=== PATIENT | female | born 1995 | race Caucasian/White ===

== ENCOUNTER 2017-11-09 10:06 | Inpatient (IN) | payer OTHER, BC ==
--- NOTE | 2017-11-08 19:56 | PDOC.LDHP ---
Labor and Delivery H&P Chief complaint: scheduled section HPI: 22 yo @ 39w0d by 10 week CRL who presents for scheduled PLTCS due to h/o shoulder dystocia with infant clavicle fracture. Antepartum course otherwise benign. Current gestational age (weeks): 39 Due date: 11/16/17 Dating criteria: first trimester ultrasound Grav: 2 Para: 1 OB History Details: complicated by shoulder dystocia, 8 lb 14 oz Current complications: none Abnormal US findings: No Past Medical History: Denies Current medications: pre-annamarie vitamins Previous surgical history: other (Tonsillectomy) Allergies/Adverse Reactions: Allergies Allergy/AdvReac Type Severity Reaction Status Date / Time No Known Allergies Allergy Verified 02/26/13 09:11 Social history: none - Physical Exam Vital signs reviewed and normal: yes General: resting Heart: RRR Lungs: nonlabored breathing Abdomen: gravid Extremeties: no edema FHT: category 2 (140s, mod laury, +accels, small variable decels) [place] contractions every: q4-5 min, pt does not feel ctx. - OB Labs Blood type: A RH: positive Antibody Screen: negative HIV: negative RPR: negative HEPSAg: negative 1 hour GCT: negative GBS: positive Urine drug screen: not done Rubella: immune - Assessment 39w0d IUP H/O shoulder dystocia with clavicle fracture - Plan Plan: admit to L&D, to OR for section, informed consent obtained, anesthesia consult for pain management -: Patient has been counseled on options for delivery including serial growth sonograms vs PLTCS due to h/o shoulder dystocia and due to 15% risk of recurrence she desires PLTCS, scheduled today.
[2017-11-09] MEDS ORDERED: Promethazine HCl 25 MG/ML VIAL IM PRN ×2 (11:09→17:31)
[2017-11-09] MEDS ORDERED: Bicitra 30 ML UDCUP PO SCH (11:09)
[2017-11-09] MEDS ORDERED: Ondansetron HCl/PF 4 MG/2 ML Vial IVP PRN ×3 (11:09→17:31)
[2017-11-09] MEDS ORDERED: CEFAZOLIN/Water 2 GM/20 ML SYRINGE SLOW IVP SCH (11:09)
[2017-11-09 11:17] LABS: Hemoglobin 12.6 g/dL (12.0-16.0); Mean Corpuscular HGB CONC 34.7 g/dL (32.0-36.0); Mean Corpuscular Hemoglobin 27.4 pg (27.0-31.0); Mean Corpuscular Volume 79.1 fl (81.0-99.0); Mean Platelet Volume 7.9 fL (7.4-10.4); Platelet Count 179 thou/uL (130-400); Red Blood Cell (RBC) Count 4.58 mill/uL (4.20-5.40); White Blood Cell (WBC) Count 11.3 thou/uL (4.8-10.8)
[2017-11-09 11:25] VITALS: BMI 35.0
[2017-11-09 12:03] LABS: HIV (1/2) Antibody/Antigen Non-Reactive (NonReactive); Hep B Surf Ag Non-Reactive S/CO (NonReactive)
[2017-11-09 12:05] LABS: Syphilis Antibody Nonreactive (Nonreactive); Syphilis Antibody Index 0.07 S/CO (<1.00 Non-Reactive)
[2017-11-09] MEDS ORDERED: PHENYLEPHRINE-NS 100 MCG/ML 10 ML SYRINGE ONE ×2 (13:26→17:02)
[2017-11-09] MEDS ORDERED: Bupivacaine 0.75% W/DEXTROSE 8.25% 2 ML AMP ONE (16:51)
[2017-11-09] MEDS ORDERED: Morphine PF 1 MG/ML SYR ONE (16:59)
[2017-11-09] MEDS ORDERED: Oxytocin 10 UNITS/ML VIAL ONE ×2 (17:02→17:26)
[2017-11-09] MEDS ORDERED: Lidocaine 1% PF 5 ML VIAL ONE (17:04)
[2017-11-09] MEDS ORDERED: Promethazine HCl 25 MG SUPP PR PRN (17:31)
[2017-11-09] MEDS ORDERED: diphenhydrAMINE 50 MG/ML VIAL IVP PRN (17:31)
[2017-11-09] MEDS ORDERED: Eucerin (Mineral Oil/Petrolatum,White) 30 gm Jar TOP PRN (17:31)
[2017-11-09] MEDS ORDERED: HYDROmorphone 2 MG/ML VIAL SLOW IVP PRN (17:31)
[2017-11-09] MEDS ORDERED: Naloxone HCl 0.4 mg/ml Vial IV PRN (17:31)
[2017-11-09] MEDS ORDERED: Naloxone HCl 0.4 mg/ml Vial IVP PRN ×2 (17:31)
[2017-11-09] MEDS ORDERED: Meperidine HCl/PF 25 MG/ML VIAL SLOW IVP PRN (17:31)
[2017-11-09] MEDS ORDERED: Communication Order-Pharmacy FS SCH (17:45)
[2017-11-09] MEDS ORDERED: Ketorolac Tromethamine 30 MG/ML VIAL IVP SCH (17:45)
--- NOTE | 2017-11-09 18:02 | PDOC.OPDEL ---
OB Operative/Delivery Note Delivery Dr/Surgeon: Emma Medina DO Assist: Paolo Hernandez MD Pre-Delivery Diagnosis: scheduled section (39 week IUP, h/o Shoulder dystocia) Procedure/Post Delivery Dx: primary low transverse CS Weeks gestation: 39 Anesthesia: spinal - Findings A Sex: male Weight: 8 lb 7 oz - 1 min: 8 - 5 min: 9 - Additional Findings/Plan Placenta delivered: spontaneous findings: low transverse hysterotomy without extension, normal uterus, normal tubes, normal ovaries Estimated blood loss: 800 cc Compilations/Other Findings: Infant in cephalic presentation Clear AF Normal placenta Post delivery plan: routine recovery
[2017-11-09] MEDS ORDERED: Promethazine HCl 25 MG/ML VIAL ONE (18:49)
[2017-11-09] MEDS ORDERED: Lanolin Ointment 7 GM TUBE TOP PRN (20:56)
[2017-11-09] MEDS ORDERED: Methylergonovine 0.2 MG/ML VIAL IM PRN (20:56)
[2017-11-09] MEDS ORDERED: LR w/ Pitocin 40 units/1000 ML BAG IV SCH (20:56)
[2017-11-09] MEDS ORDERED: Misoprostol 200 MCG TAB PR SCH (20:56)
[2017-11-09] MEDS ORDERED: Bisacodyl 10 MG SUPP PR PRN (20:56)
[2017-11-09] MEDS ORDERED: HYDROcodone/Acetaminophen 5/325 mg Tablet PO PRN (20:56)
[2017-11-09] MEDS ORDERED: Acetaminophen 325 MG TAB PO PRN (20:56)
[2017-11-09] MEDS ORDERED: LR / Pitocin 40 units/1000 ml 1,000 ML IV SCH (23:00)
[2017-11-09] MEDS: Lactated Ringer's 1,000 ML IV SCH (23:28)
[2017-11-10] MEDS: Lactated Ringer's 1,000 ML IV SCH ×3 (03:47→13:39)
[2017-11-10] MEDS: Simethicone Chewable 80 MG TAB PO PRN ×2 (04:08→17:40)
[2017-11-10] MEDS: Ketorolac Tromethamine 30 MG/ML VIAL IVP PRN ×3 (04:15→17:40)
[2017-11-10 05:20] LABS: #Lymphocytes 2.3 thou/uL (1.20-3.40); #Monocytes 0.7 thou/uL (0.11-0.59); #Neutrophils 8.1 thou/uL (1.40-6.50); %Basophils 0.3 % (0.0-1.0); %Eosinophils 0.4 % (0.0-10.0); %Lymphocytes 20.7 % (21.0-51.0); %Monocytes 5.9 % (0.0-10.0); %Neutrophils 72.8 % (42.0-75.0); Hemoglobin 9.7 g/dL (12.0-16.0); Mean Corpuscular HGB CONC 34.6 g/dL (32.0-36.0); Mean Corpuscular Hemoglobin 27.7 pg (27.0-31.0); Platelet Count 135 thou/uL (130-400); RBC Distribution Width 11.9 % (11.5-14.5); Red Blood Cell (RBC) Count 3.51 mill/uL (4.20-5.40); White Blood Cell (WBC) Count 11.1 thou/uL (4.8-10.8)
--- NOTE | 2017-11-10 08:00 | PRG ---
DATE OF SERVICE: 11/10/2017 PRIMARY OB: Dr. Emma Medina. SUBJECTIVE: The patient is a 22-year-old female postop day #1, status post a primary for h istory of shoulder dystocia and clavicle fracture on previous baby. The patient reports she is ruel ating p.o., has just had the Saravia catheter removed, she is having good pain control. PHYSICAL EXAMINATION: VITAL SIGNS: This morning, blood pressure is 110/66, temperature 98.6, pulse of 91, respiratory rate of 18, satting 98% on room air. GENERAL: She appears to be in no acute distress. She is alert and oriented, cooperative and pleasan t to interact with. HEENT: Head is normocephalic, atraumatic. ABDOMEN: Fundus is firm. Incision is clean, dry, and intact. EXTREMITIES: Nontender, nonedematous. LABORATORY STUDIES: Hemoglobin is 9.7 down from 12.6, hematocrit 28.1 down from 36.3, and platelets of 135,000. ASSESSMENT AND PLAN: The patient is a 22-year-old female postop day #1, status post a primary sectio n for history of shoulder dystocia. We will continue postoperative care. Anticipate discharge in 2- 3 days.
[2017-11-10] MEDS: Prenatal Vitamin 1 TAB PO SCH (09:09)
--- NOTE | 2017-11-10 09:47 | OP ---
PRIMARY OB: Dr. 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 Emma Medina on .
[2017-11-10] MEDS: HYDROcodone/Acetaminophen 5/325 mg Tablet PO PRN ×2 (16:19→21:18)
[2017-11-11] MEDS: Ibuprofen 800 MG TAB PO SCH ×3 (03:41→21:17)
[2017-11-11] MEDS: HYDROcodone/Acetaminophen 5/325 mg Tablet PO PRN ×3 (03:42→20:10)
[2017-11-11] MEDS: Lactated Ringer's 1,000 ML IV SCH ×4 (03:44→18:18)
--- NOTE | 2017-11-11 06:50 | PDOC.PP ---
Post Progress Note Post Day #: POD#2 Subjective: Resting comfortably. No complaints. PO intake tolerated: yes Flatus: yes Ambulation: yes Vital Signs (12 hours) Temp Pulse Resp 11/11/17 03:53 98.4 F 81 20 11/11/17 00:25 98.4 F 81 20 11/10/17 20:15 98.4 F 81 20 Weight Weight 89.811 kg - Physical Examination General: NAD Respiratory: non-labored breathing Abdominal: no distention Extremities: negative homans (B) Skin: CS incision dry & intact Psychiatric: normal affect Result Diagrams: 11/10/17 04:52 Additional Labs: Post Labs Blood Type A POSITIVE 11/09/17 10:40 Hep Bs Antigen Non-Reactive S/CO (NonReactive) 11/09/17 10:40 - Assessment/Plan Doing well. Advance diet. Ambulate hallway.
[2017-11-11] MEDS: Prenatal Vitamin 1 TAB PO SCH (09:32)
[2017-11-11] MEDS ORDERED: Docusate Calcium (SURFAK) 240 MG CAP PO PRN (22:19)
[2017-11-12] MEDS: Lactated Ringer's 1,000 ML IV SCH (00:26)
[2017-11-12] MEDS: Ibuprofen 800 MG TAB PO SCH (05:26)
--- NOTE | 2017-11-12 08:03 | DIS ---
DATE OF ADMISSION: 11/09/2017 DATE OF DISCHARGE: 11/12/2017 ADMITTING DIAGNOSES: 1. Intrauterine at 39 weeks. 2. History of previous shoulder dystocia with clavicle fracture. DISCHARGE DIAGNOSES: 1. Intrauterine at 39 weeks. 2. History of previous shoulder dystocia with clavicle fracture. PROCEDURE: Primary . CONSULTATIONS: None. HOSPITAL COURSE: The patient is a 22-year-old G2, P1 female who presented to Labor and Delivery for a scheduled primary due to history of shoulder dystocia with clavicle fracture in a previou s . For the complete details, please refer to the operative note. The was uncomp licated and the patient was once recovered, sent to for continued care. Her co urse has been uncomplicated. She is now postop day #3, she reports she is tolerating p.o., voiding o n her own, having decreased lochia and good pain control. PHYSICAL EXAMINATION: VITAL SIGNS: Today, blood pressure is 116/74, temperature 98.9, pulse of 92, respiratory rate of 20. GENERAL: She appears to be in no acute distress. She is alert and oriented, cooperative and pleasan t to interact with. HEENT: Head is normocephalic, atraumatic. ABDOMEN: Fundus is firm. Incision is clean, dry, and intact. EXTREMITIES: Nontender, nonedematous. LABORATORY DATA: Her post-delivery hemoglobin is 9.7, hematocrit 28.1, platelets of 135,000. DISPOSITION: The patient is being discharged to home. DISCHARGE INSTRUCTIONS: She has instructions to follow up with Dr. Medina for a 2 week incision che k. She also has instructions to seek medical attention sooner if she experiences fever, increasing p ain, bleeding, redness or drainage from the incision site. DISCHARGE MEDICATIONS: The patient is being discharged to home with [place] 5/325, #20 and ibuprofen 8 00 mg, #30 to be taken as needed p.r.n. for pain. The patient is being discharged to home.
[2017-11-12 10:38] VITALS: BP 110/71; TEMP 98.2
--- NOTE | 2017-11-12 22:23 | OP ---
DATE OF PROCEDURE: 11/09/2017 PREOPERATIVE DIAGNOSES: 1. This is a 39-week intrauterine . 2. History of shoulder dystocia with clavicular fracture of the infant. POSTOPERATIVE DIAGNOSES: 1. This is a 39-week intrauterine . 2. History of shoulder dystocia with clavicular fracture of the infant. PROCEDURE: Primary low transverse delivery via Pfannenstiel skin incision. SURGEON: Emma Medina D.O. ROAD DRIVER: Ian Hernandez M.D. COMPLICATIONS: None. ANESTHESIA: Spinal. ESTIMATED BLOOD LOSS: 800 mL. IV FLUIDS: 1400 mL. URINE OUTPUT: 100 mL. FINDINGS: Normal appearing uterus, fallopian tubes and ovaries bilaterally, normal appearing placent a, clear amniotic fluid, viable male infant in cephalic presentation with Apgars 8 and 9, weighing 8 pounds and 7 ounces. INDICATIONS FOR THE PROCEDURE: Ms. Maura Edgar is a 22-year-old G2, P1 at 39 weeks and 0 days who h as a history of previous shoulder dystocia resulting in a clavicular flexion of her first child who w eighed 8 pounds and 14 ounces. The patient was counseled on options of serial sonogram with a planne d vaginal delivery versus a primary delivery due to history of shoulder dystocia and she pre ferred to have a primary delivery. PROCEDURE IN DETAIL: The patient was brought to the operating room and spinal anesthesia was placed. She was placed in a supine position with a leftward tilt and Ancef was given prophylactically. She was prepped and draped in a sterile fashion and a Saravia catheter was placed. An official timeout wa s performed and the regional anesthesia was assessed and proven to be adequate. Pfannenstiel skin in cision was made using the scalpel and this was carried down to underlying fascia layer. The fascia w as incised in the midline using the scalpel and extended using Lord scissors. The superior aspect of the fascial incision was grasped using David clamps, tended upward and dissected free from the unde rlying rectus abdominis muscles. The same was done to the inferior aspect of fascial incision. Rect us abdominis muscles were bluntly. Peritoneum was entered in bluntly. Daniel O retractor was placed into the abdomen. A low transverse hysterotomy was made using the scalpel. The hysteroto my was elevated using Allis clamps and the hysterotomy was extended using sharp and blunt dissection. Amniotic membranes were ruptured and clear amniotic fluid. was delivered in cephalic presen tation. 's cord was clamped and cut. Infant was handed to the awaiting Neonatology team. Cor d sample and cord blood were obtained. The placenta was delivered spontaneously intact. The uterus was cleared of all clot and debris. Hysterotomy was closed in a running locking fashion using #1 PDS . There was an area along the middle aspect of the hysterotomy that required an additional figure-of -eight stitch for hemostasis. The pelvis was then irrigated and cleared of all clot and debris. The ovaries and fallopian tubes were evaluated and normal in appearance. The Daniel O retractor was rem hermann from the abdomen. The peritoneum was closed in a running fashion using were hemostatic wi th use of Bovie. The fascia was closed in a running fashion using 0 PDS. Subcutaneous layer was copping machine operator iously irrigated, hemostatic with use of the Bovie. The subcutaneous layer was closed using Vicryl a nd the skin was closed using 4-0 Monocryl and Dermabond. The patient tolerated the procedure well. There were no complications. All counts were correct x3. The patient and infant were transferred to routine recovery.
== END 2017-11-12 12:00 | disposition home or self-care (01) | DRG 766 ==
LOC: L&D 10:06 → 3SE 20:54 → 3SW 11-11 16:45
PROVIDERS: ADMIT Obstetrics & Gynecology; ATTEND Obstetrics & Gynecology
PROC: 10D00Z1 Extraction of Products of Conception, Low, Open Approach (ICD-10-PCS; principal; 2017-11-09)
DX: O36.63X0 Maternal care for excessive fetal growth, third trimester, not applicable or unspecified (principal); Z37.0 Single live birth; Z3A.39 39 weeks gestation of pregnancy
CPT/HCPCS: 36415; 85025; 85027; 86780; 86850; 86900; 86901; 87340; 87389; A4216; J1885; J2001; J2274; J2550; J2590; J3490

== ENCOUNTER 2020-12-02 10:15 | Emergency (ER) | payer BC ==
[2020-12-02 11:38] LABS: Bilirubin Negative (Negative); Blood, Urine 3+ (Negative); Clarity Turbid (Clear); Glucose, Urine (Dipstick) Normal (Negative); Ketone, Urine Negative (Negative); Leukocyte 500 Leu/uL (Negative); Nitrite Negative (Negative); Protein, Urine (Dipstick) 10 mg/dL (Neg-Trace); RBC/HPF 21-50 HPF (0-3); Urobilinogen Normal mg/dL (Less than 2); WBC/HPF Greater than 50 HPF (0-3)
[2020-12-02 11:39] LABS: Bacteria/HPF 1+ HPF (None Seen)
[2020-12-02 11:40] LABS: Pregnancy Test - Urine (BHCG) Negative (Negative); Pregu Control Background? CLEAR/WHITE (CLR/WHITE); Pregu Control Bar Appear? YES (CONTROL BAR)
[2020-12-02] MEDS ORDERED: Ondansetron ODT 4 MG TAB ONE (11:45)
[2020-12-02] MEDS ORDERED: Ketorolac Tromethamine 30 MG/ML VIAL ONE (11:45)
[2020-12-02 12:09] LABS: #Lymphocytes 1.5 thou/uL (1.20-3.40); #Monocytes 0.4 thou/uL (0.11-0.59); #Neutrophils 9.9 thou/uL (1.40-6.50); %Basophils 0.4 % (0.0-1.0); %Eosinophils 0.2 % (0.0-10.0); %Lymphocytes 12.9 % (21.0-51.0); %Monocytes 3.3 % (0.0-10.0); %Neutrophils 83.1 % (42.0-75.0); Hemoglobin 13.8 g/dL (12.0-16.0); Mean Corpuscular HGB CONC 33.3 g/dL (32.0-36.0); Mean Corpuscular Hemoglobin 29.9 pg (27.0-31.0); Mean Platelet Volume 8.3 fL (7.4-10.4); Platelet Count 218 thou/uL (130-400); RBC Distribution Width 11.4 % (11.5-14.5); Red Blood Cell (RBC) Count 4.62 mill/uL (4.20-5.40); White Blood Cell (WBC) Count 11.9 thou/uL (4.8-10.8)
[2020-12-02 12:16] LABS: ALT (SGPT) 16 U/L (8-55); AST (SGOT) 14 U/L (5-34); Albumin 4.3 g/dL (3.5-5.0); Alkaline Phosphatase 44 U/L (40-110); Anion Gap 11 mmol/L (10-20); BUN (Urea Nitrogen) 11 mg/dL (7.0-18.7); Bilirubin, Total 0.8 mg/dL (0.2-1.2); Calc. Creatinine Clearance 0 mL/min (70-130); Calcium 9.4 mg/dL (7.8-10.44); Carbon Dioxide 25 mmol/L (22-29); Chloride 106 mmol/L (98-107); Glucose 99 mg/dL (70-105); Potassium 4.2 mmol/L (3.5-5.1); Protein, Total 7.3 g/dL (6.0-8.3); Sodium 138 mmol/L (136-145)
== END 2020-12-02 12:58 | disposition home or self-care (01) ==
LOC: ERS 10:15
DX: N12 Tubulo-interstitial nephritis, not specified as acute or chronic (principal)
CPT/HCPCS: 36415; 80053; 81003; 81015; 81025; 85025; 96372; 99284; J1885; Q0162

== ENCOUNTER 2023-12-16 09:26 | Emergency (ER) | payer BC, SELFPAY ==
[2023-12-16] MEDS ORDERED: Ketorolac Tromethamine 30 MG (1 mL) VIAL ONE (10:17)
[2023-12-16] MEDS ORDERED: Ondansetron PF 4 MG/2 ML Vial ONE (10:17)
[2023-12-16 10:25] LABS: #Basophils Less than 0.03 10x3/uL (0.0-0.2); %Basophils 0.3 % (0.0-1.0); %Eosinophils 1.4 % (0.0-10.0); %Lymphocytes 20.9 % (21.0-51.0); %Monocytes 6.2 % (0.0-10.0); %Neutrophils 70.8 % (42.0-75.0); Hematocrit 38.8 % (36.0-47.0); Hemoglobin 13.2 g/dL (12.0-16.0); Mean Corpuscular Hemoglobin 30.6 pg (27.0-31.0); Mean Platelet Volume 10.2 fL (7.4-10.4); Platelet Count 193 10x3/uL (130-400); RBC Distribution Width 11.9 % (11.5-14.5); Red Blood Cell (RBC) Count 4.31 mill/uL (4.20-5.40)
[2023-12-16 10:47] LABS: Bacteria/HPF None Seen HPF (None Seen); Bilirubin Negative (Negative); Blood, Urine Negative (Negative); CAUTI Indications for Culture Pelvic or flank pain; Clarity Clear (Clear); Glucose, Urine (Dipstick) Normal (Negative); Ketone, Urine Negative (Negative); Leukocyte 75 Leu/uL (Negative); Nitrite Negative (Negative); Protein, Urine (Dipstick) Negative (Neg-Trace); RBC/HPF 0-3 HPF (0-3); Specific Gravity, Urine 1.013 (1.002-1.036); Squamous Epithelial 0-3 HPF (0-3); Urobilinogen Normal mg/dL (Less than 2); WBC/HPF 21-50 HPF (0-3); pH, Urine 6.5 (5.0-9.0)
[2023-12-16 10:49] LABS: Urine Culture Reflex Yes Yes
[2023-12-16 10:56] LABS: BHCG - Serum Negative (NEGATIVE); Pregs Control Bar Appear? YES (CONTROL BAR)
[2023-12-16 10:57] LABS: Pregs Control Background? CLEAR/WHITE (CLR/WHITE)
[2023-12-16 10:59] LABS: ALT (SGPT) 8 U/L (8-55); AST (SGOT) 15 U/L (5-34); Albumin 3.6 g/dL (3.5-5.0); Alkaline Phosphatase 38 U/L (40-110); Anion Gap 12 mmol/L (10-20); BUN (Urea Nitrogen) 14 mg/dL (7.0-18.7); Bilirubin, Total 0.4 mg/dL (0.2-1.2); Calc. Creatinine Clearance 0 mL/min (70-130); Calcium 9.3 mg/dL (7.8-10.44); Carbon Dioxide 22 mmol/L (22-29); Chloride 108 mmol/L (98-107); Estimated GFR 113; Globulin 3.2 g/dL (2.4-3.5); Glucose 91 mg/dL (70-105); Potassium 4.3 mmol/L (3.5-5.1); Protein, Total 6.8 g/dL (6.0-8.3); Sodium 138 mmol/L (136-145)
== END 2023-12-16 12:54 | disposition home or self-care (01) ==
LOC: ERS 09:26
DX: N10 Acute pyelonephritis (principal); Z75.3 Unavailability and inaccessibility of health-care facilities
CPT/HCPCS: 36415; 74176; 80053; 81001; 84703; 85025; 87077; 87086; 96374; 96375; J1885; J2405